=== PATIENT | male | born 1975 | race African-American/Black ===

== ENCOUNTER → 2018-10-30 18:37 | Outpatient (CLI) | payer OTHER, SELFPAY ==
--- NOTE | 2018-10-30 18:41 | DI.MRI.S_ITS ---
PROCEDURE: MR LUMBAR SPINE WO CON INDICATIONS: LOW BACK PAIN TECHNIQUE: Noncontrast sagittal T1 spin echo and T2 fast echo, sagittal STIR, axial T1 and T2 fast spin echo through the lumbar spine. In cases with scoliosis, additional coronal T2 fast spin echo may be performed. COMPARISON: [facility], MR, LUMBAR SPINE W/O CONTRAST, 11/08/2012, 6:59. [facility] [place], CR, XR LUMBAR SPINE WITH OLBIQUES PLUS FLEXION EXTENSION, 10/17/2018, 16:00. FINDINGS: Image quality: Excellent. Alignment and Curvature: 5 lumbar type vertebral bodies are present by plain film. There is mild, grade 1 retrolisthesis of L1 on L2, L2 on L3, L3 on L4, L4-L5, and L5 on S1. Bone Marrow: Marrow is of normal overall signal. No acute vertebral body compression fractures. There is mild reactive signal within the endplates adjacent to the L4-L5 and L5-S1 intervertebral discs. Spinal Cord: Conus medullaris terminates at the lower T12 level. Visualized cord demonstrates normal signal and size. Paraspinous Soft Tissues: No paravertebral masses. L1-L2: Normal appearance. L2-L3: Mild diffuse disc bulge and. Mild facet and ligament flavum hypertrophy. Mild canal stenosis. Mild bilateral foraminal stenosis. No change. L3-L4: Mild disc height loss and desiccation. Mild diffuse disc bulge. Mild facet and ligament flavum hypertrophy. Mild epidural lipomatosis. Mild canal stenosis. Mild bilateral foraminal stenosis. No change. L4-L5: Moderate disc desiccation. Mild disc height loss. Moderate diffuse disc bulge. Central annular tear. Mild facet and ligamentum flavum hypertrophy bilaterally. Moderate canal stenosis. Moderate right greater than left subarticular foraminal stenosis. No change. L5-S1: Moderate disc height loss and desiccation. Moderate diffuse disc bulge with small superimposed broad-based left paracentral protrusion. Mild facet hypertrophy. Mild epidural lipomatosis. Moderate canal stenosis. Moderate subarticular foraminal stenosis bilaterally. Compression of, and posterior deviation of, the left S1 nerve root within the lateral recesses present, as before. No change. IMPRESSION: 1. Multilevel degenerative disc and facet disease, as well as ligamentum flavum hypertrophy and epidural lipomatosis. 2. Multilevel canal stenoses, worse at L4-L5 and L5-S1, where there are moderate canal stenoses. 3. Multilevel foraminal stenoses, worst at L4-L5 and L5-S1, where there are moderate foraminal stenoses present. 4. No change in left S1 nerve root deviation and compression at the L5-S1 level. Recommend correlation with clinical symptoms to ascertain relevance of this finding. Dictated by: Veda Santos M.D. on 10/31/2018 at 9:30 Approved by: Veda Santos M.D. on 10/31/2018 at 9:42
== END ==
PROVIDERS: Visit Provider Physical Medicine & Rehabilitation Pain Medicine
DX: M48.061 Spinal stenosis, lumbar region without neurogenic claudication (principal)
CPT/HCPCS: 72148